=== PATIENT | male | born 1985 | race Caucasian/White ===

== ENCOUNTER → 2021-12-23 08:50 | Outpatient (CLI) | payer OTHER, SELFPAY ==
--- NOTE | 2021-12-23 | DI.MRI.S_ITS ---
PROCEDURE: MR KNEE RT WO CON INDICATIONS: Other tear of medial meniscus, current injury, TECHNIQUE: Noncontrast sagittal PD fast spin echo and T2 fast spin echo with fat saturation, sagittal 3-D FLASH with fat saturation; coronal T1 spin echo and PD fast spin echo with fat saturation, and axial PD fast spin echo with fat saturation through the knee. COMPARISON: None. FINDINGS: Image quality: Excellent. Menisci: Truncated appearance involving anterior horn and body of medial meniscus is seen suggestive of prior partial meniscectomy. No evidence of gross recurrent tear is seen in medial meniscal remanent. Lateral meniscus is intact. The meniscal root ligaments appear intact. Cruciate ligaments: Patient is status post prior anterior cruciate ligament reconstruction. ACL graft is intact. PCL is intact. Medial structures: The medial collateral ligament appears intact. The posterior oblique ligament, semimembranosus tendon insertions, oblique popliteal ligament, and meniscocapsular junction appear intact. Visualized portions of the pes anserinus tendons appear normal. No abnormal bursal fluid. Lateral structures: The lateral collateral ligament, long and short heads of the biceps femoris tendon appear intact. The popliteus tendon appears normal; the popliteofibular ligament appears intact. The posterosuperior and anteroinferior popliteomeniscal fascicles appear intact. The arcuate and fabellofibular ligaments appear intact, on either side of the lateral inferior geniculate artery. Iliotibial band appears normal. Anterior structures: Distal quadriceps tendinosis at its superior patellar is seen. Patellar tendon is intact. Patellar alignment is normal. No femoral trochlear dysplasia or ventral trochlear prominence. No edema in the infrapatellar fat pad. Bones and cartilage: Postsurgical changes are noted in lateral femoral condyle and medial aspect of proximal tibia. No bone marrow contusions or fractures. The cartilage of the medial and lateral femorotibial compartments, as well as the patellofemoral compartment, appears normal in thickness. Joint space: There is physiologic knee joint fluid. No Pina's cyst. Normal appearing synovial plicae are incidentally noted. IMPRESSION: 1. Suggestion of prior partial medial meniscectomy . No gross recurrent tear is seen in medial meniscal remanent. Lateral meniscus is intact. 2. Prior ACL reconstruction surgery with intact ACL graft. PCL is intact. 3. Postsurgical changes are noted in lateral femoral condyle and medial portion of proximal tibia. No fracture or dislocation. No marrow edema. Articulating cartilages are intact. 4. Distal quadriceps tendinosis at its superior patellar insertion. Patellar tendon is intact. Dictated by: Clay Lincoln M.D. on 12/23/2021 at 10:50 Approved by: Clay Lincoln M.D. on 12/23/2021 at 10:53
== END ==
PROVIDERS: Referring Provider Orthopaedic Surgery; Visit Provider Orthopaedic Surgery
DX: S83.241A Other tear of medial meniscus, current injury, right knee, initial encounter (principal); X58.XXXA Exposure to other specified factors, initial encounter
CPT/HCPCS: 73721